=== PATIENT | female | born 1990 | race Two or more races ===

== ENCOUNTER 2018-01-19 23:37 | Emergency (ER) | payer MEDICAID, OTHER ==
[~2018-01-19] VITALS: Ht 170.2 cm; Wt 104.3 kg
[2018-01-19] MEDS ORDERED: MECLIZINE HCL25 MG ORAL (23:59)
[2018-01-19] MEDS ORDERED: NITROFURANTOIN100 M2 ORAL (23:59)
[2018-01-20 00:20] VITALS: BP 125/77
[2018-01-20] MEDS ORDERED: IBUPROFEN600 MG ORAL (00:22)
[2018-01-20] MEDS ORDERED: NORCO 5-325 TA1 EACH ORAL (00:22)
[2018-01-20] MEDS ORDERED: ROBAXIN-750750 MG PO (00:22)
[2018-01-20] MEDS ORDERED: Methocarbamol 750mg tab ORAL ONE (00:30)
[2018-01-20 00:39] VITALS: BP 125/77
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
== END 2018-01-20 00:40 | disposition home or self-care (01) ==
LOC: EMR 01-20 00:19
DX: M54.5 Low back pain (principal); V43.62XA Car passenger injured in collision with other type car in traffic accident, initial encounter; Y92.414 Local residential or business street as the place of occurrence of the external cause
CPT/HCPCS: 99284